=== PATIENT | male | born 1965 | race Two or more races ===

== ENCOUNTER 2024-01-04 16:31 | Emergency (ER) | payer OTHER ==
[2024-01-04 16:47] VITALS: BP 121/69; PULSE 98; RESP 16; TEMP 98.3; BMI 26.9
[2024-01-04] MEDS ORDERED: LORATADINE 10 MG TABLET ONE (17:23)
[2024-01-04] MEDS ORDERED: FAMOTIDINE 20 MG TABLET ONE (17:23)
[2024-01-04] MEDS: LORATADINE 10 MG TABLET PO ONE (17:25)
[2024-01-04] MEDS: FAMOTIDINE 20 MG TABLET PO ONE (17:26)
[2024-01-04 17:43] LABS: BASO % 0.4 % (0-2.0); EOS % 0.4 % (0-4.5); HEMATOCRIT 41.7 % (35.4-49); HEMOGLOBIN 13.5 GM/dL (11.7-16.9); LYMPH % 20.4 % (8-40); MCH 25.8 pg (25.7-33.7); MCHC 32.5 g/dl (32.0-35.9); MEAN CELL VOLUME 79.4 fl (80-96); MEAN PLT VOLUME 6.7 fl (7.5-11.1); MONO % 7.2 % (3.8-10.2); NEUT % 71.6 % (42.8-82.8); PLATELET COUNT 554 10^3/uL (134-434); RBC 5.25 M/mm3 (4.00-5.60); RDW 13.3 % (11.9-15.9); WHITE BLOOD COUNT 7.2 K/mm3 (4.0-10.0)
[2024-01-04 18:05] LABS: POTASSIUM 4.2 mmol/L (3.5-5.1)
[2024-01-04 18:07] LABS: CALCIUM 9.2 mg/dL (8.5-10.1)
[2024-01-04 18:08] LABS: ALBUMIN 3.5 g/dl (3.4-5.0); BLOOD UREA NITROGEN 23.3 mg/dL (7-18)
[2024-01-04 18:11] LABS: CREATININE 1.2 mg/dL (0.55-1.3)
[2024-01-04 18:12] LABS: TOT PROT 7.4 g/dl (6.4-8.2)
[2024-01-04 18:13] LABS: BILIRUBIN,TOTAL 0.6 mg/dL (0.2-1)
[2024-01-04] MEDS ORDERED: AMOX TR/POT CLAV 875MG/125MG TABLETS (FP) ONE (18:36)
[2024-01-04] MEDS ORDERED: DOXYCYCLINE HYCLATE 100 MG CAPSULE PO ONE (18:36)
[2024-01-04] MEDS: DOXYCYCLINE HYCLATE 100 MG CAPSULE PO ONE (18:40)
[2024-01-04] MEDS: AMOX TR/POT CLAV 875MG/125MG TABLETS (FP) PO ONE (18:40)
== END 2024-01-04 18:48 | disposition home or self-care (01) ==
LOC: JERFT 16:31
DX: J18.9 Pneumonia, unspecified organism (principal); K21.9 Gastro-esophageal reflux disease without esophagitis; Z20.822 Contact with and (suspected) exposure to COVID-19
CPT/HCPCS: 0241U-QW; 36415; 71046-TC-FY; 80053; 85025; 99284-25

== ENCOUNTER 2024-05-20 11:50 | Emergency (ER) | payer OTHER ==
[2024-05-20 12:02] VITALS: BP 120/72; PULSE 78; RESP 18; TEMP 98.1; BMI 26.9
[2024-05-20] MEDS ORDERED: ALBUTEROL SO4 2.5/IPRATROPIUM 0.5 INH SOL 3 ML VIAL.NEB. NEB ONE ×2 (12:03→13:02)
[2024-05-20] MEDS: ALBUTEROL SO4 2.5/IPRATROPIUM 0.5 INH SOL 3 ML VIAL.NEB. NEB ONE ×2 (12:25→13:05)
== END 2024-05-20 13:25 | disposition home or self-care (01) ==
LOC: FER 11:50
PROC: 3E0F7GC Introduction of Other Therapeutic Substance into Respiratory Tract, Via Natural or Artificial Opening (ICD-10-PCS; principal; 2024-05-20)
PROC: 3E0F7GC Introduction of Other Therapeutic Substance into Respiratory Tract, Via Natural or Artificial Opening (ICD-10-PCS; 2024-05-20)
DX: R05.2 Subacute cough (principal); J20.9 Acute bronchitis, unspecified
CPT/HCPCS: 71046-TC-FY; 73562-TC-RT-FY; 99284-25